=== PATIENT | male | born 1950 | race Asian ===

== ENCOUNTER 2020-12-09 13:54 | Inpatient (IN) | payer MEDICAID, MEDICARE, SELFPAY ==
[~2020-12-09] VITALS: Ht 162.6 cm; Wt 67.6 kg
[2020-12-09 13:54] VITALS: BP_SYST 140
[2020-12-09] MEDS ORDERED: NICO-736 TP (14:12)
[2020-12-09] MEDS ORDERED: DILT300C54 PO (14:12)
[2020-12-09] MEDS ORDERED: GUAI100S14 PO (14:12)
[2020-12-09] MEDS ORDERED: MIRT15TA7 PO (14:12)
[2020-12-09] MEDS ORDERED: OMEP-268 PO (14:12)
[2020-12-09] MEDS ORDERED: NEU300 PO (14:12)
[2020-12-09] MEDS ORDERED: METO25TA3 PO (14:12)
[2020-12-09] MEDS ORDERED: DOCU-144 PO (14:12)
[2020-12-09] MEDS ORDERED: FURO40SO5 PO (14:12)
[2020-12-09] MEDS ORDERED: QUET300T2 PO (14:12)
[2020-12-09] MEDS ORDERED: POTA20TA83 PO (14:12)
[2020-12-09] MEDS ORDERED: [UNRECOGNIZED DRUG - CODE] PO (14:12)
[2020-12-09 14:30] LABS: BASOPHILS % (AUTO) 0.3 % (0.0-2.0); EOSINOPHILS # (AUTO) 0.1 K/uL (0.0-0.4); EOSINOPHILS % (AUTO) 1.1 % (0.0-4.0); HEMATOCRIT 42.4 % (36-54); HEMOGLOBIN 14.2 g/dL (14.0-18.0); LYMPHOCYTES # (AUTO) 1.4 K/uL (1.0-5.5); LYMPHOCYTES % (AUTO) 14.9 % (20.5-51.5); MEAN CORPUSCULAR HEMOGLOBIN 27 pg (27-31); MEAN CORPUSCULAR HGB CONC 34 % (32-36); MEAN CORPUSCULAR VOLUME 82 fL (79.0-98.0); MONOCYTES # (AUTO) 0.6 K/uL (0.0-1.0); MONOCYTES % (AUTO) 5.9 % (1.7-9.3); NEUTROPHILS # (AUTO) 7.3 K/uL (1.8-7.7); NEUTROPHILS % (AUTO) 77.8 % (40.0-70.0); PLATELET COUNT (AUTO) 235 K/uL (130-430); RED CELL DISTRIBUTION WIDTH 15.7 % (9.0-15.0); WHITE BLOOD COUNT (AUTO) 9.4 K/uL (4.8-10.8)
[2020-12-09 14:42] LABS: CALCIUM 8.9 mg/dL (8.4-11.0); CREATININE 1.27 mg/dL (0.55-1.30); POTASSIUM 3.9 mmol/L (3.5-5.1)
[2020-12-09 14:43] LABS: PROTHROMBIN TIME 10.6 SECS (9.5-12.5)
[2020-12-09 14:49] LABS: ALBUMIN 3.6 g/dL (3.4-4.8); TOTAL BILIRUBIN 0.5 mg/dL (0.0-1.0)
[2020-12-09 15:02] LABS: C-REACTIVE PROTEIN QUANT 11.8 mg/dL (0-0.5)
[2020-12-09] MEDS ORDERED: NACL 0.9% 1,000 ML IV ONE (15:30)
[2020-12-09] MEDS ORDERED: IOHEXOL 350 mgI/mL, 150 ML INFUS..BTL IV ONE (15:32)
[2020-12-09] MEDS ORDERED: ENOXAPARIN SODIUM 60 MG/0.6 ML SYRINGE SUBCUT ONE (17:30)
[2020-12-09 18:20] VITALS: BP_SYST 128
[2020-12-09 19:11] VITALS: BP_SYST 128
[2020-12-09 20:00] VITALS: BP_SYST 143
[2020-12-09] MEDS ORDERED: IPRATROPIUM BROM 0.5 MG/2.5 ML VIAL.NEB (ATROVENT) INH PRN (20:15)
[2020-12-09] MEDS ORDERED: ALBUTEROL SULFATE 0.083% 2.5 MG/3 ML VIAL.NEB INH PRN (20:15)
[2020-12-09 21:00] VITALS: BP_SYST 128
[2020-12-09] MEDS ORDERED: LEVOFLOXACIN 500 MG/D5W 100 ML IV ONE (21:47)
[2020-12-09] MEDS: DOCUSATE SODIUM 100 MG CAPSULE PO SCH (21:52)
[2020-12-09] MEDS: LEVOFLOXACIN 500 MG/D5W 100 ML IV SCH (21:52)
[2020-12-09] MEDS: MIRTAZAPINE 15 MG TABLET PO SCH (21:53)
[2020-12-09] MEDS: METOPROLOL SUCCINATE 25 MG TAB.SR.24H (TOPROL XL) PO SCH (22:02)
[2020-12-10] VITALS: BP_SYST 130
[2020-12-10] MEDS: IPRATROPIUM BROM 0.5 MG/2.5 ML VIAL.NEB (ATROVENT) INH SCH ×4 (07:00→23:00)
[2020-12-10] MEDS: ALBUTEROL SULFATE 0.083% 2.5 MG/3 ML VIAL.NEB INH SCH ×4 (07:00→23:00)
[2020-12-10] MEDS ORDERED: *LOVENOX 1MG/KG Q12H/PHARMACY XX ONE (07:15)
[2020-12-10 08:00] VITALS: BP_SYST 155
[2020-12-10] MEDS ORDERED: ENOXAPARIN SODIUM 60 MG/0.6 ML SYRINGE ONE ×2 (10:27→20:26)
[2020-12-10] MEDS: DOCUSATE SODIUM 100 MG CAPSULE PO SCH ×2 (10:36→20:27)
[2020-12-10] MEDS: METOPROLOL SUCCINATE 25 MG TAB.SR.24H (TOPROL XL) PO SCH ×2 (10:37→20:35)
[2020-12-10] MEDS: DILTIAZEM HCL 300 MG CAP.SR.24H PO SCH (10:37)
[2020-12-10] MEDS: ENOXAPARIN SODIUM 60 MG/0.6 ML SYRINGE SUBCUT SCH ×2 (10:38→20:36)
[2020-12-10 12:03] VITALS: BP_SYST 145
[2020-12-10 16:04] VITALS: BP_SYST 136
[2020-12-10 20:00] VITALS: BP_SYST 127
[2020-12-10] MEDS: LEVOFLOXACIN 500 MG/D5W 100 ML IV SCH (20:27)
[2020-12-10] MEDS: MIRTAZAPINE 15 MG TABLET PO SCH (20:27)
[2020-12-11] VITALS: BP_SYST 136
[2020-12-11] MEDS: IPRATROPIUM BROM 0.5 MG/2.5 ML VIAL.NEB (ATROVENT) INH SCH ×4 (07:00→19:51)
[2020-12-11] MEDS: ALBUTEROL SULFATE 0.083% 2.5 MG/3 ML VIAL.NEB INH SCH ×4 (07:00→19:51)
[2020-12-11 08:00] VITALS: BP_SYST 133
[2020-12-11 11:32] VITALS: BP_SYST 129
[2020-12-11 16:07] VITALS: BP_SYST 126
[2020-12-11] MEDS ORDERED: ENOXAPARIN SODIUM 40 MG/0.4 ML SYRINGE ONE (16:27)
[2020-12-11] MEDS: DOCUSATE SODIUM 100 MG CAPSULE PO SCH ×2 (16:35→21:00)
[2020-12-11] MEDS: METOPROLOL SUCCINATE 25 MG TAB.SR.24H (TOPROL XL) PO SCH ×2 (16:35→21:00)
[2020-12-11] MEDS: DILTIAZEM HCL 300 MG CAP.SR.24H PO SCH (16:37)
[2020-12-11] MEDS: ENOXAPARIN SODIUM 60 MG/0.6 ML SYRINGE SUBCUT SCH ×2 (16:40→21:00)
[2020-12-11 20:00] VITALS: BP_SYST 133
[2020-12-11] MEDS: LEVOFLOXACIN 500 MG/D5W 100 ML IV SCH (21:00)
[2020-12-11] MEDS: MIRTAZAPINE 15 MG TABLET PO SCH (21:00)
[2020-12-12 01:26] VITALS: BP_SYST 121
[2020-12-12 04:00] VITALS: BP_SYST 132
[2020-12-12] MEDS: IPRATROPIUM BROM 0.5 MG/2.5 ML VIAL.NEB (ATROVENT) INH SCH ×3 (07:00→15:00)
[2020-12-12] MEDS: ALBUTEROL SULFATE 0.083% 2.5 MG/3 ML VIAL.NEB INH SCH ×3 (07:00→15:00)
[2020-12-12] MEDS: DILTIAZEM HCL 300 MG CAP.SR.24H PO SCH (09:00)
[2020-12-12] MEDS: DOCUSATE SODIUM 100 MG CAPSULE PO SCH (09:00)
[2020-12-12] MEDS: ENOXAPARIN SODIUM 60 MG/0.6 ML SYRINGE SUBCUT SCH (09:00)
[2020-12-12] MEDS: METOPROLOL SUCCINATE 25 MG TAB.SR.24H (TOPROL XL) PO SCH (09:00)
== END 2020-12-12 19:40 | disposition hospice, home (50) | DRG 133 ==
LOC: SED 13:54 → STU 17:23 → SMU 12-11 10:14
PROVIDERS: ADMIT Internal Medicine Hospice and Palliative Medicine; ATTEND Internal Medicine Hospice and Palliative Medicine
DX: J96.01 Acute respiratory failure with hypoxia (principal); R29.6 Repeated falls; Z20.822 Contact with and (suspected) exposure to COVID-19; I10 Essential (primary) hypertension; Z79.899 Other long term (current) drug therapy
CPT/HCPCS: 36415; 36600; 70450-TC; 71045; 71275; 76376; 80053; 82550-TC; 82728; 82803-TC; 83605; 83615-TC; 83880; 84484; 85025; 85379; 85384-TC; 85610-TC; 85730-TC; 86140; 87040-TC; 93005; 93970; 96360; 96372; G0378; J1650; J1956; J7613; Q9967; U0003